=== PATIENT | female | born 1955 | race Caucasian/White ===

== ENCOUNTER 2017-02-02 00:05 | Day surgery (SDC) | payer OTHER ==
[~2017-02-02] VITALS: Ht 170.2 cm; Wt 68.0 kg
[~2017-02-02 00:05] MED LIST: ASPI-628 PO; ATOR80TA PO; CHOL200047 PO; GABA-502 PO; HYDR12.5 PO; LOSA100T29 PO
[2017-02-02] MEDS ORDERED: Sodium Chloride LOK Flush 10 mL Syringe IV PRN (06:00)
[2017-02-02] MEDS ORDERED: fentaNYL-PF 50 mCg/mL 2 mL Inj IVPUSH PRN (06:00)
[2017-02-02 07:35] VITALS: BP 138/81; PULSE 65; RESP 16; O2SAT 96
[2017-02-02] MEDS: 0.9% Sodium Chloride 1,000 ML IV SCH ×3 (07:35→08:31)
[2017-02-02 08:48] VITALS: BP 111/62; PULSE 54; RESP 16; O2SAT 97
[2017-02-02 09:08] VITALS: BP 100/54; PULSE 48; RESP 16; O2SAT 98
[2017-02-02 09:18] VITALS: BP 115/69; PULSE 58; RESP 16; O2SAT 99
--- NOTE | 2017-02-02 16:15 | ENDO ---
[address] [address] ENDOSCOPY PROCEDURE PATIENT: NANDINI BRINK : 1955 MR#: [id number] ADMIT: 02/02/2017 JOB ID: [id number] DATE: 02/02/2017 PROCEDURE: Colonoscopy. INDICATION: The patient with a history of colon polyps. The patient's ASA classification is 2. Mallampati score is 2. MEDICATIONS: 1. Versed 6 mg. 2. Fentanyl 125 mcg. INSTRUMENT USED: PCF H 180 AL. PREPARATION QUALITY: Was good. PROCEDURE DETAILS: After informed consent was obtained, the patient was brought to the GI suite, where she was placed on oxygen via nasal cannula and monitored with continuous pulse oximeter, telemetry and blood pressure monitoring. A time-out was performed. Then, she was placed in the left lateral decubitus position and medications were administered for sedation. Digital rectal examination was performed and was unremarkable. The colonoscope was then inserted into the rectum and advanced under direct visualization to the cecum, which was identified by the presence of the ileocecal valve and appendiceal orifice. Once the cecum was reached, colonoscope was withdrawn back in the rectum as the mucosa and lumen were examined. In the rectum, retroflexion was performed. Following retroflexion, remaining air in the rectum was suctioned, and procedure was completed. FINDINGS: 1. In the cecum there were two flat polyps. One was appendiceal. The other was in the more distal portion of the cecum. The flat polyp next to the appendiceal orifice measured approximately 8-9 mm and was flat. There was mucus adherent to it. Appearance was suggestive of a serrated polyp. The polyp was lifted using normal saline and then removed with a hot snare. There were some small portions that were not removed with a snare and these portions were then removed with cold biopsy forceps. The resulting mucosal defect was approximated with the placement of two hemoclips. 2. In the more distal cecum, there was another polyp that measured approximately 8 mm, was flat and had mucus adherent to it suggestive of serrated polyp. The polyp was lifted using normal saline and then removed with a hot snare. The resulting mucosal defect was approximated with a placement of two hemoclips. 3. In the proximal ascending colon, there was a linear polyp on a fold that measured approximately 1 cm in length and approximately 3-4 mm in width. The polyp was lifted using normal saline and then removed with a hot snare. The resulting mucosal defect was approximated with the placement of three hemoclips. 4. In the rectum there were three polyps ranging from diminutive to approximately 4 mm. The two diminutive polyps were removed with cold biopsy forceps and the larger polyp measuring approximately 4 mm was removed with a cold snare. IMPRESSION: 1. Two cecal polyps. 2. Ascending colon polyp. 3. Three rectal polyps. RECOMMENDATIONS: 1. Avoid nonsteroidal anti-inflammatory drugs and anticoagulants for 72 hours. 2. Repeat colonoscopy in two years. COMPLICATIONS: None. ESTIMATED BLOOD LOSS: Less than 5 mL.
--- NOTE | 2017-02-05 14:54 | PATH ---
SURGICAL PATHOLOGY Attending Physician:Roxi Mcarthur CASE STATUS: Signed Out PATIENT NAME: NANDINI BRINK PID: [id number] : 1955 DATE COLLECTED:02/02/2017 16:15 SPECIMEN: 1: Colon, Biopsy 2: Colon, Biopsy 3: Rectum, Biopsy CLINICAL HISTORY: 1. CECAL POLYPS X2 2. ASCENDING COLON POLYP 3. 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 2.ASCENDING COLON POLYP: SESSILE SERRATED ADENOMA INVOLVING MULTIPLE BIOPSY FRAGMENTS. 3.RECTAL POLYPS: HYPERPLASTIC POLYP INVOLVING THREE BIOPSY FRAGMENTS. ICD10 CODE D12.0 GROSS DESCRIPTION: The specimen is received in three formalin filled containers labeled with the patient's name. 1). The specimen is sublabeled "cecal polyps" and consists of 2 portions of tissue which aggregate to 1.5 x 1.1 x 0.6 CM. The specimens are sectioned into 5 total pieces and entirely submitted in cassette 1A. 2). The specimen is sublabeled "ascending colon polyp" and consists of multiple portions of tissue which aggregate to 1.1 x 0.7 x 0.2 CM. The specimen is entirely submitted in cassette 2A. 3). The specimen is sublabeled "rectal polyps" and consists of 4 portions of tissue which aggregate to 0.3 x 0.3 x 0.2 CM. The specimen is entirely submitted in cassette 3A. 02/02/2017 DAC MICRO DESCRIPTION: See diagnosis. ICD-9 CODES: CPT CODES: 1: 14482 2: 85074 3: 24683 Electronically Signed Out Elliot Ledesma MD [facility] Pathology [facility] [address], [place] [address] Technical component performed at [facility], [facility] [address], [place], [address]
== END 2017-02-02 23:59 | disposition home or self-care (01) ==
LOC: END 00:05
PROVIDERS: ATTEND Internal Medicine Gastroenterology
DX: Z12.11 Encounter for screening for malignant neoplasm of colon (principal); D12.0 Benign neoplasm of cecum; D12.2 Benign neoplasm of ascending colon; K62.1 Rectal polyp; Z86.010 Personal history of colon polyps; I25.119 Atherosclerotic heart disease of native coronary artery with unspecified angina pectoris; I10 Essential (primary) hypertension; E78.5 Hyperlipidemia, unspecified; R73.01 Impaired fasting glucose
CPT/HCPCS: 45380; 45381; 45385; 99153; G0500; J7030